=== PATIENT | female | born 1935 | race Asian ===

== ENCOUNTER 2023-12-16 23:29 | Observation (INO) | payer BC ==
[~2023-12-16] VITALS: Ht 160 cm; Wt 50.0 kg
[2023-12-17 00:05] LABS: ALANINE AMINOTRANSFERASE 17 U/L (12-78); ALBUMIN 3.7 G/DL (3.4-5.0); ALBUMIN/GLOBULIN RATIO 1.1 (1.1-1.5); ALKALINE PHOSPHATASE 46 IU/L (46-116); ANION GAP 7 (8-16); ASPARTATE AMINO TRANSFERASE 14 U/L (10-37); BILIRUBIN,TOTAL 0.3 MG/DL (0.1-1.0); BLOOD UREA NITROGEN 35 MG/DL (7-18); BUN/CREATININE RATIO 24.6 (10.0-20.0); CALCIUM 8.5 MG/DL (8.5-10.1); CHLORIDE 104 MMOL/L (99-107); CREATININE 1.42 MG/DL (0.40-0.90); GLUCOSE 120 MG/DL (70-104); POTASSIUM 4.2 MMOL/L (3.5-5.1); SODIUM 139 MMOL/L (135-145); TOTAL CARBON DIOXIDE 28.3 MMOL/L (24-32); TOTAL PROTEIN 7.1 G/DL (6.4-8.2); eCRCL 15 ML/MIN; eGFR 35 ML/MIN
[2023-12-17 00:06] LABS: BASOPHILS % (AUTO) 0.6 % (0-1); EOSINOPHILS # (AUTO) 0.2 X10'3 (0-0.9); EOSINOPHILS % (AUTO) 3.2 % (0-6); HEMATOCRIT 29.3 % (35.0-45.0); LYMPHOCYTES # (AUTO) 1.9 X10'3 (1.1-4.8); LYMPHOCYTES % (AUTO) 34.1 % (21-51); MEAN CORPUSCULAR HEMOGLOBIN 32.4 PG (27.0-31.0); MEAN CORPUSCULAR HGB CONC 34.2 g/dL (33.0-36.5); MEAN CORPUSCULAR VOLUME 94.8 FL (78-98); MEAN PLATELET VOLUME 6.8 FL (7.4-10.4); MONOCYTES # (AUTO) 0.6 X10'3 (0-0.9); MONOCYTES % (AUTO) 10.7 % (2-12); NEUTROPHILS # (AUTO) 2.9 X10'3 (1.8-7.7); NEUTROPHILS % (AUTO) 51.4 % (42-75); PLATELET COUNT 216 X10'3 (140-440); RED BLOOD COUNT 3.09 X10'6 (4.20-5.60); RED CELL DISTRIBUTION WIDTH 13.1 % (11.5-14.5); WHITE BLOOD COUNT 5.6 X10'3 (4.5-11.0)
[2023-12-17 00:13] LABS: PRO BRAIN NATRIURETIC PEPTIDE 535 PG/ML (0-450)
[2023-12-17] MEDS: normal saline 1000ml 1,000 ML IV ONE (03:36)
[2023-12-17] MEDS: pantoprazole 40 MG vial IV ONE (03:36)
[2023-12-17] MEDS: morphine 4 MG/ML inj SYRINge IV ONE (03:42)
[2023-12-17] MEDS: ondansetron/PF 4mg/2ml inj IV ONE (03:43)
[2023-12-17 03:48] LABS: MAGNESIUM 2.5 MG/DL (1.5-2.4)
[2023-12-17] MEDS ORDERED: NO HOME MEDS (04:04)
[2023-12-17] MEDS ORDERED: potassium Cl 20 mEq SR tablet PO PRN ×2 (04:20)
[2023-12-17] MEDS ORDERED: magnesium 4gm in 100ml NS 100 ML IV PRN (04:20)
[2023-12-17] MEDS ORDERED: magnesium hydroxide 30ml (MOM) UD suspension PO PRN (04:20)
[2023-12-17] MEDS ORDERED: ondansetron/PF 4mg/2ml inj IV PRN (04:20)
[2023-12-17] MEDS ORDERED: HYDROcodone/acetaminophen 10/325mg tab PO PRN (04:20)
[2023-12-17] MEDS ORDERED: magnesium Cl slow-release 64mg tablet PO PRN (04:20)
[2023-12-17] MEDS ORDERED: HYDROcodone/acetaminophen 5mg/325mg tablet PO PRN (04:20)
[2023-12-17] MEDS ORDERED: mag hydrox/Alum hydrox/simeth 30ml oral suspension PO PRN (04:20)
[2023-12-17] MEDS ORDERED: acetaminophen 325mg tablet PO PRN ×2 (04:20)
[2023-12-17] MEDS ORDERED: magnesium 2GM in 50ml NS 50 ML IV PRN (04:20)
[2023-12-17] MEDS ORDERED: potassium Cl 40MEQ/1/2NS 520ml 520 ML IV PRN (04:20)
[2023-12-17 05:54] VITALS: BP_DIAS 69; TEMP 98; O2SAT 96
[2023-12-17 06:58] VITALS: RESP 16
[2023-12-17 07:29] LABS: APTT 25 SECONDS (22-32); PROTHROMBIN TIME 9.8 SECONDS (9.0-12.0)
[2023-12-17 07:33] LABS: INR 0.9 INR
[2023-12-17 07:34] LABS: BILIRUBIN,URINE NEGATIVE (Neg); CLARITY,URINE CLEAR (Clear); COLOR,URINE STRAW (Yellow); GLUCOSE, URINE NEGATIVE (Neg); KETONES,URINE NEGATIVE (Neg); LEUKOCYTE ESTERASE ,URINE NEGATIVE (Neg); NITRITES, URINE NEGATIVE (Neg); OCCULT BLOOD,URINE NEGATIVE (Neg); PH,URINE 7.5 (4.8-8.0); PROTEIN,URINE NEGATIVE (Neg); UROBILINOGEN,URINE 0.2 E.U/dL (0.2-1.0)
[2023-12-17 07:46] LABS: UA COLLECTION TYPE CLN CATCH MIDSTREAM
[2023-12-17] MEDS ORDERED: bisoprolol 5mg tablet PO SCH (08:00)
[2023-12-17] MEDS: K and/or MAG REPLACEMENT MC SCH (08:00)
[2023-12-17] MEDS ORDERED: ketorolac trometh. 30mg/ml inj. IV PRN (08:30)
[2023-12-17] MEDS: pantoprazole 40 MG vial IV SCH (08:46)
[2023-12-17] MEDS: isosorbide mononitrate 30mg tab.SR.24H PO SCH (08:46)
[2023-12-17 08:47] VITALS: BP_SYST 160; PULSE 70
[2023-12-17] MEDS: atenolol 50mg tablet PO SCH (08:47)
[2023-12-17] MEDS: heparin, porcine 5000 units/ml vial SQ SCH (08:47)
[2023-12-17] MEDS ORDERED: LOSA-415 PO (10:27)
[2023-12-17] MEDS ORDERED: ACET-890 PO (10:27)
[2023-12-17] MEDS ORDERED: GABA-530 PO (10:27)
[2023-12-17] MEDS ORDERED: AMLO2.5T2 PO (10:27)
[2023-12-17] MEDS ORDERED: OMEP10CA5 PO (10:27)
[2023-12-17] MEDS ORDERED: NAPR-1170 PO (10:27)
[2023-12-17] MEDS ORDERED: ALPR-149 PO (10:27)
[2023-12-17] MEDS ORDERED: ATEN50TA41 PO (12:23)
[2023-12-17] MEDS ORDERED: PANT-47 PO (12:23)
== END 2023-12-17 13:00 | disposition home or self-care (01) ==
LOC: ER 23:31 → ED HOLD 12-17 04:25 → INTOOBSV 12-17 04:25 → PCU 3S 12-17 07:25
PROVIDERS: ADMIT Internal Medicine; ATTEND Family Medicine
DX: K21.9 Gastro-esophageal reflux disease without esophagitis (principal); R07.89 Other chest pain; N17.9 Acute kidney failure, unspecified; I10 Essential (primary) hypertension; Z79.899 Other long term (current) drug therapy
CPT/HCPCS: 36415; 71045; 71250; 74176; 80053; 81003; 83605; 83735; 83880; 84132; 84484; 85025; 85610; 85730; 86885; 86900; 86901; 87040; 93005; 96361; 96372; 96374; 96375; 96376; 99285; C9113; G0378; J1644; J2270; J2405; J7030

== ENCOUNTER 2023-12-28 06:14 | Inpatient (IN) | payer BC ==
[~2023-12-28] VITALS: Ht 152.4 cm; Wt 56.5 kg
[~2023-12-28 06:14] MED LIST: AMLO2.5T2 PO; ATEN50TA41 PO; GABA-530 PO; LOSA-415 PO; NO HOME MEDS; OMEP10CA5 PO; PANT-47 PO
[2023-12-28 06:47] LABS: BASOPHILS % (AUTO) 0.6 % (0-1); EOSINOPHILS # (AUTO) 0.2 X10'3 (0-0.9); HEMATOCRIT 30.8 % (35.0-45.0); HEMOGLOBIN 10.3 g/dl (12.0-16.0); LYMPHOCYTES # (AUTO) 1.8 X10'3 (1.1-4.8); MEAN CORPUSCULAR HEMOGLOBIN 31.8 PG (27.0-31.0); MEAN CORPUSCULAR HGB CONC 33.5 g/dL (33.0-36.5); MEAN PLATELET VOLUME 7.2 FL (7.4-10.4); MONOCYTES # (AUTO) 0.6 X10'3 (0-0.9); MONOCYTES % (AUTO) 7.7 % (2-12); NEUTROPHILS # (AUTO) 4.6 X10'3 (1.8-7.7); NEUTROPHILS % (AUTO) 63.7 % (42-75); PLATELET COUNT 227 X10'3 (140-440); RED BLOOD COUNT 3.24 X10'6 (4.20-5.60); WHITE BLOOD COUNT 7.2 X10'3 (4.5-11.0)
[2023-12-28] MEDS: morphine 2 MG/ML inj. syringe IV ONE ×2 (06:54→07:55)
[2023-12-28 07:03] LABS: ALANINE AMINOTRANSFERASE 55 U/L (12-78); ALBUMIN 3.8 G/DL (3.4-5.0); ALBUMIN/GLOBULIN RATIO 1.1 (1.1-1.5); ALKALINE PHOSPHATASE 49 IU/L (46-116); ANION GAP 11 (8-16); ASPARTATE AMINO TRANSFERASE 21 U/L (10-37); BILIRUBIN,TOTAL 0.3 MG/DL (0.1-1.0); BLOOD UREA NITROGEN 32 MG/DL (7-18); BUN/CREATININE RATIO 23.5 (10.0-20.0); CALCIUM 8.7 MG/DL (8.5-10.1); CHLORIDE 108 MMOL/L (99-107); CREATININE 1.36 MG/DL (0.40-0.90); GLUCOSE 114 MG/DL (70-104); POTASSIUM 4.2 MMOL/L (3.5-5.1); SODIUM 145 MMOL/L (135-145); TOTAL CARBON DIOXIDE 25.6 MMOL/L (24-32); TOTAL PROTEIN 7.4 G/DL (6.4-8.2); eCRCL 21 ML/MIN; eGFR 37 ML/MIN
[2023-12-28 07:10] LABS: PRO BRAIN NATRIURETIC PEPTIDE 1382 PG/ML (0-450)
[2023-12-28] MEDS: normal saline 500ml IV soln 500 ML IV SCH (07:25)
[2023-12-28] MEDS: nitroGLYCERIN 1gm ointment UD TP ONE (07:25)
[2023-12-28 09:52] LABS: D-DIMER 0.39 MG/L FEU (0-0.50)
[2023-12-28] MEDS ORDERED: heparin 10,000 units/1 ML INJ IV ONE ×2 (10:15→11:10)
[2023-12-28 10:24] LABS: APTT 26 SECONDS (22-32)
[2023-12-28 10:36] LABS: PROTHROMBIN TIME 10.2 SECONDS (9.0-12.0)
[2023-12-28] MEDS ORDERED: mag hydrox/Alum hydrox/simeth 30ml oral suspension PO PRN (11:10)
[2023-12-28] MEDS ORDERED: HYDROcodone/acetaminophen 10/325mg tab PO PRN (11:10)
[2023-12-28] MEDS ORDERED: potassium Cl 40MEQ/1/2NS 520ml 520 ML IV PRN (11:10)
[2023-12-28] MEDS ORDERED: ondansetron/PF 4mg/2ml inj IV PRN (11:10)
[2023-12-28] MEDS ORDERED: acetaminophen 325mg tablet PO PRN ×2 (11:10)
[2023-12-28] MEDS ORDERED: magnesium 2GM in 50ml NS 50 ML IV PRN (11:10)
[2023-12-28] MEDS ORDERED: heparin 25,000 UNIT/250ml bag 250 ML IV PRN (11:10)
[2023-12-28] MEDS ORDERED: heparin 10,000 units/1 ML INJ IV PRN (11:10)
[2023-12-28] MEDS ORDERED: magnesium 4gm in 100ml NS 100 ML IV PRN (11:10)
[2023-12-28] MEDS ORDERED: morphine 2 MG/ML inj. syringe IV PRN ×2 (11:10)
[2023-12-28] MEDS ORDERED: ondansetron 4mg rapidly disintigrating tab PO PRN (11:10)
[2023-12-28] MEDS ORDERED: magnesium Cl slow-release 64mg tablet PO PRN (11:10)
[2023-12-28] MEDS ORDERED: magnesium hydroxide 30ml (MOM) UD suspension PO PRN (11:10)
[2023-12-28] MEDS ORDERED: potassium Cl 20 mEq SR tablet PO PRN ×2 (11:10)
[2023-12-28] MEDS: heparin 10,000 units/1 ML INJ IV ONE (11:13)
[2023-12-28] MEDS: heparin 25,000 UNIT/250ml bag 250 ML IV PRN (11:15)
[2023-12-28] MEDS: aspirin 325mg tablet, delayed-release (Ecotrin) PO ONE (11:27)
[2023-12-28 11:45] LABS: CHOL/HDL RATIO 4.1 (0.00-4.99); CHOLESTEROL 199 MG/DL (0-200); HDL CHOLESTEROL 48 MG/DL (35-60); LDL CHOLESTEROL 126 MG/DL (50-100); TRIGLYCERIDES 93 MG/DL (20-135)
[2023-12-28 11:48] LABS: H PYLORI ANTIBODY NEGATIVE (Neg)
[2023-12-28 11:50] LABS: BASOPHILS % (AUTO) 0.4 % (0-1); EOSINOPHILS % (AUTO) 0.6 % (0-6); HEMATOCRIT 28.6 % (35.0-45.0); HEMOGLOBIN 9.4 g/dl (12.0-16.0); LYMPHOCYTES # (AUTO) 0.9 X10'3 (1.1-4.8); LYMPHOCYTES % (AUTO) 12.8 % (21-51); MEAN CORPUSCULAR HEMOGLOBIN 31.4 PG (27.0-31.0); MEAN CORPUSCULAR HGB CONC 32.9 g/dL (33.0-36.5); MEAN CORPUSCULAR VOLUME 95.4 FL (78-98); MEAN PLATELET VOLUME 7.7 FL (7.4-10.4); MONOCYTES # (AUTO) 0.4 X10'3 (0-0.9); MONOCYTES % (AUTO) 5.5 % (2-12); NEUTROPHILS # (AUTO) 5.9 X10'3 (1.8-7.7); NEUTROPHILS % (AUTO) 80.7 % (42-75); PLATELET COUNT 189 X10'3 (140-440); WHITE BLOOD COUNT 7.3 X10'3 (4.5-11.0)
[2023-12-28] MEDS: normal saline 1000ml 1,000 ML IV SCH (13:19)
[2023-12-28] MEDS ORDERED: LORazepam 0.5 MG tablet PO PRN (16:05)
[2023-12-28] MEDS: hydrALAZINE 20mg/ml inj. IV PRN (18:14)
[2023-12-28] MEDS ORDERED: ALPR-149 PO (18:53)
[2023-12-28] MEDS ORDERED: OMEP40CA21 PO (18:53)
[2023-12-28] MEDS ORDERED: GABA-530 PO (18:53)
[2023-12-28] MEDS ORDERED: NAPR-1170 PO (18:53)
[2023-12-28] MEDS ORDERED: ergocalciferol PO (18:53)
[2023-12-28] MEDS ORDERED: LOSA100T58 PO (18:53)
[2023-12-28] MEDS ORDERED: ATEN50TA PO (18:56)
[2023-12-28] MEDS ORDERED: AMLO2.5T5 PO (18:56)
[2023-12-28 19:30] VITALS: BP 165/58; PULSE 79; RESP 14; TEMP 98.7; O2SAT 100
[2023-12-28] MEDS: K and/or MAG REPLACEMENT MC SCH (20:00)
[2023-12-28] MEDS: MESSAGE TO NURSING IV ONE (20:45)
[2023-12-28] MEDS: docusate sod 100mg capsule PO SCH (21:26)
[2023-12-28] MEDS: metoprolol tartrate 25mg tablet PO SCH (21:27)
[2023-12-28 22:00] VITALS: BP 160/69; PULSE 71; RESP 13; TEMP 98.2; O2SAT 95
[2023-12-28] MEDS: HYDROcodone/acetaminophen 5mg/325mg tablet PO PRN (22:44)
[2023-12-28] MEDS: temazepam 15mg capsule PO PRN (22:45)
[2023-12-29] VITALS (9 sets, daily range): BP systolic 145–170; BP diastolic 55–73; PULSE 67–84; RESP 11–18; TEMP 98.3–98.9; O2SAT 91–96
[2023-12-29 01:51] LABS: ALANINE AMINOTRANSFERASE 45 U/L (12-78); ALBUMIN 2.9 G/DL (3.4-5.0); ALBUMIN/GLOBULIN RATIO 0.9 (1.1-1.5); ALKALINE PHOSPHATASE 41 IU/L (46-116); ANION GAP 10 (8-16); ASPARTATE AMINO TRANSFERASE 105 U/L (10-37); BILIRUBIN,TOTAL 0.4 MG/DL (0.1-1.0); BLOOD UREA NITROGEN 21 MG/DL (7-18); BUN/CREATININE RATIO 18.4 (10.0-20.0); CALCIUM 8.1 MG/DL (8.5-10.1); CHLORIDE 110 MMOL/L (99-107); CREATININE 1.14 MG/DL (0.40-0.90); GLUCOSE 99 MG/DL (70-104); POTASSIUM 3.9 MMOL/L (3.5-5.1); SODIUM 144 MMOL/L (135-145); TOTAL CARBON DIOXIDE 23.8 MMOL/L (24-32); eCRCL 25 ML/MIN; eGFR 45 ML/MIN
[2023-12-29] MEDS: MESSAGE TO NURSING IV ONE ×4 (02:45→12:50)
[2023-12-29] MEDS: heparin 10,000 units/1 ML INJ IV PRN (03:08)
[2023-12-29] MEDS ORDERED: nitroGLYCERIN 0.4mg SUBLingual tab SL PRN (05:30)
[2023-12-29 06:31] LABS: BASOPHILS % (AUTO) 0.5 % (0-1); EOSINOPHILS # (AUTO) 0.2 X10'3 (0-0.9); HEMATOCRIT 29.3 % (35.0-45.0); HEMOGLOBIN 9.7 g/dl (12.0-16.0); LYMPHOCYTES # (AUTO) 1.9 X10'3 (1.1-4.8); LYMPHOCYTES % (AUTO) 24.8 % (21-51); MEAN CORPUSCULAR HEMOGLOBIN 31.5 PG (27.0-31.0); MEAN CORPUSCULAR HGB CONC 33.2 g/dL (33.0-36.5); MEAN CORPUSCULAR VOLUME 94.7 FL (78-98); MONOCYTES # (AUTO) 0.6 X10'3 (0-0.9); MONOCYTES % (AUTO) 7.5 % (2-12); NEUTROPHILS % (AUTO) 65.2 % (42-75); PLATELET COUNT 189 X10'3 (140-440); RED BLOOD COUNT 3.09 X10'6 (4.20-5.60); WHITE BLOOD COUNT 7.6 X10'3 (4.5-11.0)
[2023-12-29] MEDS: pantoprazole 40mg Tablet.DR PO SCH (07:47)
[2023-12-29] MEDS: aspirin 81mg tab.chew PO SCH (07:47)
[2023-12-29] MEDS: atorvastatin 20mg tablet PO SCH (07:47)
[2023-12-29] MEDS ORDERED: LIDOcaine 1% (10mg/ml) 2ml vial ONE (11:34)
[2023-12-29] MEDS ORDERED: verapamil 2.5 mg/ml inj IV ONE (11:34)
[2023-12-29] MEDS ORDERED: heparin 1,000unit/ml 10ml vial 10 ML ONE (11:34)
[2023-12-29] MEDS ORDERED: fentaNYL/PF 50MCG/1 ML 2ML syringe ONE (11:34)
[2023-12-29] MEDS ORDERED: midazolam 1 mg/ML 2ml injection ONE (11:34)
[2023-12-29] MEDS ORDERED: iohexol 350MG/ML 100ml bottle IV ONE (11:34)
[2023-12-29] MEDS ORDERED: nitroGLYCERIN 500mcg/5mL D5W 5 ML IV ONE (11:37)
[2023-12-29] MEDS ORDERED: LIDOcaine 1% 30ml preserv. free vial ONE (12:10)
[2023-12-29] MEDS: diltiazem 30mg tablet PO SCH (13:01)
[2023-12-29] MEDS ORDERED: diltiazem 30mg tablet PO SCH (14:00)
[2023-12-29] MEDS ORDERED: DILT30TA2 PO (17:00)
[2023-12-29] MEDS ORDERED: ATOR20TA66 PO (17:00)
[2023-12-29] MEDS ORDERED: NITR0.4T51 SL (17:00)
== END 2023-12-29 17:30 | disposition home or self-care (01) | DRG 281 ==
LOC: ER 06:14 → ED HOLD 11:16 → PCU 3S 19:30
PROVIDERS: ADMIT Family Medicine; ATTEND Family Medicine
PROC: 4A023N7 Measurement of Cardiac Sampling and Pressure, Left Heart, Percutaneous Approach (ICD-10-PCS; principal; 2023-12-29)
PROC: B2111ZZ Fluoroscopy of Multiple Coronary Arteries using Low Osmolar Contrast (ICD-10-PCS; 2023-12-29)
PROC: B2151ZZ Fluoroscopy of Left Heart using Low Osmolar Contrast (ICD-10-PCS; 2023-12-29)
DX: I21.4 Non-ST elevation (NSTEMI) myocardial infarction (principal); I31.9 Disease of pericardium, unspecified; I25.110 Atherosclerotic heart disease of native coronary artery with unstable angina pectoris; E78.00 Pure hypercholesterolemia, unspecified; I12.9 Hypertensive chronic kidney disease with stage 1 through stage 4 chronic kidney disease, or unspecified chronic kidney disease; F41.1 Generalized anxiety disorder; K21.9 Gastro-esophageal reflux disease without esophagitis; N18.9 Chronic kidney disease, unspecified; Z86.73 Personal history of transient ischemic attack (TIA), and cerebral infarction without residual deficits; Z88.5 Allergy status to narcotic agent; Z82.3 Family history of stroke; Z82.62 Family history of osteoporosis
CPT/HCPCS: 36415; 71045; 76770; 80053; 80061; 83735; 83880; 84484; 85025; 85379; 85610; 85730; 86677; 87081; 93005; 93306; 93458; 93970; 96365; 96375; 96376; 99152; 99153; 99285; A6258; C1760; C1894; G0378; J0360; J1644; J2250; J2270; J3010; J3490; J7030; J7040; Q9967

== ENCOUNTER 2024-07-28 12:52 | Emergency (ER) | payer BC ==
[~2024-07-28] VITALS: Ht 149.9 cm; Wt 59.2 kg
[~2024-07-28 12:52] MED LIST changes: +ALPR-149 PO; -AMLO2.5T2 PO; -ATEN50TA41 PO; +ATOR20TA66 PO; +DILT30TA2 PO; -LOSA-415 PO; +LOSA100T58 PO; +NAPR-1170 PO; +NITR0.4T51 SL; -NO HOME MEDS; -OMEP10CA5 PO; +OMEP40CA21 PO; -PANT-47 PO; +ergocalciferol PO
[2024-07-28 13:14] VITALS: TEMP 97.9
[2024-07-28] MEDS ORDERED: ALBU8HFA INH (16:44)
[2024-07-28] MEDS ORDERED: PROM118S5 PO (16:44)
[2024-07-28 17:11] VITALS: BP 122/80; PULSE 74; RESP 16; O2SAT 96
[2024-07-29] MEDS ORDERED: LISI10TA27 PO (19:38)
[2024-07-29] MEDS ORDERED: FURO-150 PO (19:38)
[2024-07-29] MEDS ORDERED: AMOX-318 PO (19:38)
[2024-07-29] MEDS ORDERED: AZIT250T83 PO (19:38)
[2024-07-29] MEDS ORDERED: PROM118S5 PO (19:38)
[2024-07-29] MEDS ORDERED: AMLO5TAB PO (19:38)
[2024-07-29] MEDS ORDERED: BENZ-38 PO (19:38)
== END 2024-07-28 17:12 | disposition home or self-care (01) ==
LOC: ER 12:52
DX: J06.9 Acute upper respiratory infection, unspecified (principal); Z20.822 Contact with and (suspected) exposure to COVID-19; I10 Essential (primary) hypertension; E78.00 Pure hypercholesterolemia, unspecified; Z88.5 Allergy status to narcotic agent; Z79.899 Other long term (current) drug therapy
CPT/HCPCS: 36415; 71045; 87811; 99284

== ENCOUNTER 2024-07-29 11:37 | Inpatient (IN) | payer BC ==
[~2024-07-29] VITALS: Ht 151.1 cm; Wt 60.0 kg
[~2024-07-29 11:37] MED LIST changes: +ALBU8HFA INH; +PROM118S5 PO
[2024-07-29 12:24] LABS: BASOPHILS % (AUTO) 0.3 % (0-1); EOSINOPHILS # (AUTO) 0.1 X10'3 (0-0.9); EOSINOPHILS % (AUTO) 1.7 % (0-6); HEMATOCRIT 25.9 % (35.0-45.0); HEMOGLOBIN 8.6 g/dl (12.0-16.0); LYMPHOCYTES % (AUTO) 14.3 % (21-51); MEAN CORPUSCULAR HGB CONC 33.4 g/dL (33.0-36.5); MEAN PLATELET VOLUME 7.2 FL (7.4-10.4); MONOCYTES # (AUTO) 0.6 X10'3 (0-0.9); MONOCYTES % (AUTO) 8.9 % (2-12); NEUTROPHILS # (AUTO) 5.2 X10'3 (1.8-7.7); NEUTROPHILS % (AUTO) 74.8 % (42-75); PLATELET COUNT 178 X10'3 (140-440); RED BLOOD COUNT 2.69 X10'6 (4.20-5.60); RED CELL DISTRIBUTION WIDTH 13.7 % (11.5-14.5)
[2024-07-29 12:46] LABS: ALBUMIN 2.8 G/DL (3.4-5.0); ANION GAP 9 (8-16); BLOOD UREA NITROGEN 45 MG/DL (7-18); BUN/CREATININE RATIO 26.9 (10.0-20.0); CALCIUM 8.4 MG/DL (8.5-10.1); CHLORIDE 107 MMOL/L (99-107); CREATININE 1.67 MG/DL (0.40-0.90); GLUCOSE 114 MG/DL (70-104); POTASSIUM 4.3 MMOL/L (3.5-5.1); SODIUM 141 MMOL/L (135-145); TOTAL CARBON DIOXIDE 24.8 MMOL/L (24-32); eCRCL 16 ML/MIN; eGFR 29 ML/MIN
[2024-07-29 12:47] LABS: PRO BRAIN NATRIURETIC PEPTIDE 6960 PG/ML (0-450)
[2024-07-29] MEDS: aspirin 81mg tab.chew PO ONE (17:00)
[2024-07-29] MEDS: azithromycin/NS 500mg/250ml 250 ML IV ONE ×2 (17:43→18:09)
[2024-07-29] MEDS ORDERED: magnesium hydroxide 30ml (MOM) UD suspension PO PRN (17:50)
[2024-07-29] MEDS ORDERED: ipratropium/albuterol 3ml nebule NEB PRN (17:50)
[2024-07-29] MEDS ORDERED: diphenhydrAMINE 50 mg/ml inj IV PRN (17:50)
[2024-07-29] MEDS ORDERED: HYDROcodone/acetaminophen 5mg/325mg tablet PO PRN (17:50)
[2024-07-29] MEDS ORDERED: acetaminophen 650mg rectal suppository RC PRN (17:50)
[2024-07-29] MEDS ORDERED: acetaminophen 325mg tablet PO PRN ×2 (17:50)
[2024-07-29] MEDS ORDERED: bisacodyl 10mg suppository rectal RC PRN (17:50)
[2024-07-29] MEDS ORDERED: mag hydrox/Alum hydrox/simeth 30ml oral suspension PO PRN (17:50)
[2024-07-29] MEDS ORDERED: morphine 2 MG/ML inj. syringe IV PRN (17:50)
[2024-07-29] MEDS ORDERED: ondansetron/PF 4mg/2ml inj IV PRN (17:50)
[2024-07-29] MEDS ORDERED: ondansetron 4mg rapidly disintigrating tab PO PRN (17:50)
[2024-07-29] MEDS ORDERED: CefTRIAXone 2gm/D5W 50ml BAG 50 ML IV SCH (18:00)
[2024-07-29 18:09] LABS: BILIRUBIN,URINE NEGATIVE (Neg); CLARITY,URINE CLEAR (Clear); COLOR,URINE YELLOW (Yellow); GLUCOSE, URINE NEGATIVE (Neg); KETONES,URINE NEGATIVE (Neg); LEUKOCYTE ESTERASE ,URINE NEGATIVE (Neg); NITRITES, URINE NEGATIVE (Neg); OCCULT BLOOD,URINE NEGATIVE (Neg); PROTEIN,URINE NEGATIVE (Neg); UROBILINOGEN,URINE 0.2 E.U/dL (0.2-1.0)
[2024-07-29 18:13] LABS: UA COLLECTION TYPE CLN CATCH MIDSTREAM
[2024-07-29 18:24] LABS: PHOSPHORUS 4.6 MG/DL (2.3-4.5); THYROID STIMULATING HORMONE 1.16 ulU/ml (0.34-4.50)
[2024-07-29 19:02] VITALS: PULSE 73; RESP 18; O2SAT 95
[2024-07-29] MEDS ORDERED: AMLO5TAB PO (19:38)
[2024-07-29] MEDS ORDERED: LISI10TA27 PO (19:38)
[2024-07-29] MEDS ORDERED: PROM118S5 PO (19:38)
[2024-07-29] MEDS ORDERED: AZIT250T83 PO (19:38)
[2024-07-29] MEDS ORDERED: AMOX-318 PO (19:38)
[2024-07-29] MEDS ORDERED: BENZ-38 PO (19:38)
[2024-07-29] MEDS ORDERED: FURO-150 PO (19:38)
[2024-07-29] MEDS: CefTRIAXone/D5W-Rocephin 1gm 50 ML IV SCH (19:58)
[2024-07-29] MEDS: normal saline 1000ml 1,000 ML IV SCH (19:58)
[2024-07-29] MEDS: heparin, porcine 5000 units/ml vial SQ SCH (19:58)
[2024-07-29] MEDS: docusate sod 100mg capsule PO SCH (19:59)
[2024-07-29] MEDS ORDERED: temazepam 15mg capsule PO PRN (21:00)
[2024-07-30] VITALS (9 sets, daily range): BP systolic 137–147; BP diastolic 46–60; PULSE 64–87; RESP 16; TEMP 97.2–99.1; O2SAT 94–99
[2024-07-30 06:34] LABS: BASOPHILS % (AUTO) 0.5 % (0-1); EOSINOPHILS # (AUTO) 0.1 X10'3 (0-0.9); EOSINOPHILS % (AUTO) 2.7 % (0-6); HEMATOCRIT 24.8 % (35.0-45.0); HEMOGLOBIN 8.3 g/dl (12.0-16.0); LYMPHOCYTES % (AUTO) 20.5 % (21-51); MEAN CORPUSCULAR HGB CONC 33.4 g/dL (33.0-36.5); MEAN CORPUSCULAR VOLUME 95.9 FL (78-98); MEAN PLATELET VOLUME 7.3 FL (7.4-10.4); MONOCYTES # (AUTO) 0.7 X10'3 (0-0.9); MONOCYTES % (AUTO) 13.3 % (2-12); NEUTROPHILS # (AUTO) 3.2 X10'3 (1.8-7.7); PLATELET COUNT 185 X10'3 (140-440); RED BLOOD COUNT 2.59 X10'6 (4.20-5.60); RED CELL DISTRIBUTION WIDTH 13.6 % (11.5-14.5); WHITE BLOOD COUNT 5.1 X10'3 (4.5-11.0)
[2024-07-30 06:55] LABS: ALANINE AMINOTRANSFERASE 87 U/L (12-78); ALBUMIN 2.6 G/DL (3.4-5.0); ALBUMIN/GLOBULIN RATIO 0.7 (1.1-1.5); ALKALINE PHOSPHATASE 217 IU/L (46-116); ANION GAP 8 (8-16); ASPARTATE AMINO TRANSFERASE 95 U/L (10-37); BILIRUBIN,TOTAL 0.3 MG/DL (0.1-1.0); BLOOD UREA NITROGEN 38 MG/DL (7-18); BUN/CREATININE RATIO 27.7 (10.0-20.0); CALCIUM 8.2 MG/DL (8.5-10.1); CHLORIDE 108 MMOL/L (99-107); CREATININE 1.37 MG/DL (0.40-0.90); GLUCOSE 101 MG/DL (70-104); POTASSIUM 4.3 MMOL/L (3.5-5.1); SODIUM 140 MMOL/L (135-145); TOTAL CARBON DIOXIDE 24.5 MMOL/L (24-32); TOTAL PROTEIN 6.4 G/DL (6.4-8.2); eCRCL 20 ML/MIN; eGFR 36 ML/MIN
[2024-07-30] MEDS: pantoprazole 40mg Tablet.DR PO SCH (09:09)
[2024-07-30] MEDS: azithromycin/NS 500mg/250ml 250 ML IV SCH (17:34)
[2024-07-31 05:58] LABS: BASOPHILS % (AUTO) 0.6 % (0-1); EOSINOPHILS # (AUTO) 0.2 X10'3 (0-0.9); EOSINOPHILS % (AUTO) 2.7 % (0-6); HEMATOCRIT 27.2 % (35.0-45.0); HEMOGLOBIN 9.2 g/dl (12.0-16.0); LYMPHOCYTES # (AUTO) 1.7 X10'3 (1.1-4.8); LYMPHOCYTES % (AUTO) 27.8 % (21-51); MEAN CORPUSCULAR HEMOGLOBIN 32.3 PG (27.0-31.0); MEAN CORPUSCULAR HGB CONC 33.7 g/dL (33.0-36.5); MEAN CORPUSCULAR VOLUME 95.9 FL (78-98); MEAN PLATELET VOLUME 7.3 FL (7.4-10.4); MONOCYTES # (AUTO) 0.8 X10'3 (0-0.9); NEUTROPHILS # (AUTO) 3.4 X10'3 (1.8-7.7); NEUTROPHILS % (AUTO) 55.9 % (42-75); PLATELET COUNT 229 X10'3 (140-440); RED BLOOD COUNT 2.84 X10'6 (4.20-5.60); RED CELL DISTRIBUTION WIDTH 13.5 % (11.5-14.5); WHITE BLOOD COUNT 6.1 X10'3 (4.5-11.0)
[2024-07-31 06:00] VITALS: BP 163/64; PULSE 89; RESP 18; TEMP 99.1; O2SAT 94
[2024-07-31 06:11] LABS: ALANINE AMINOTRANSFERASE 58 U/L (12-78); ALBUMIN 2.7 G/DL (3.4-5.0); ALBUMIN/GLOBULIN RATIO 0.7 (1.1-1.5); ALKALINE PHOSPHATASE 186 IU/L (46-116); ANION GAP 7 (8-16); ASPARTATE AMINO TRANSFERASE 32 U/L (10-37); BILIRUBIN,TOTAL 0.4 MG/DL (0.1-1.0); BLOOD UREA NITROGEN 21 MG/DL (7-18); BUN/CREATININE RATIO 17.4 (10.0-20.0); CALCIUM 8.3 MG/DL (8.5-10.1); CHLORIDE 109 MMOL/L (99-107); CREATININE 1.21 MG/DL (0.40-0.90); GLUCOSE 109 MG/DL (70-104); POTASSIUM 4.2 MMOL/L (3.5-5.1); SODIUM 140 MMOL/L (135-145); TOTAL CARBON DIOXIDE 23.7 MMOL/L (24-32); TOTAL PROTEIN 6.8 G/DL (6.4-8.2); eCRCL 23 ML/MIN; eGFR 42 ML/MIN
[2024-07-31 07:28] LABS: OCCULT BLOOD STOOL NEGATIVE (Neg)
[2024-07-31 08:00] VITALS: RESP 16; O2SAT 96
[2024-07-31 10:00] VITALS: BP 150/47; PULSE 83; RESP 18; TEMP 98.4; O2SAT 96
[2024-07-31 10:04] VITALS: PULSE 74; RESP 16; O2SAT 98
[2024-07-31] MEDS: diphenhydrAMINE 25mg capsule PO PRN (11:35)
[2024-07-31] MEDS ORDERED: POTA-205 PO (15:30)
[2024-07-31] MEDS ORDERED: DOXY-243 PO (15:30)
== END 2024-07-31 15:45 | disposition left against medical advice (07) | DRG 177 ==
LOC: ER 11:38 → UNDOADMIN 17:56 → ED HOLD 17:56 → ORTHO 4S 07-30 01:00
PROVIDERS: ADMIT Family Medicine; ATTEND Family Medicine
DX: J15.69 Pneumonia due to other Gram-negative bacteria (principal); G93.41 Metabolic encephalopathy; I50.33 Acute on chronic diastolic (congestive) heart failure; I13.0 Hypertensive heart and chronic kidney disease with heart failure and stage 1 through stage 4 chronic kidney disease, or unspecified chronic kidney disease; N17.9 Acute kidney failure, unspecified; J18.9 Pneumonia, unspecified organism; J15.9 Unspecified bacterial pneumonia; Z53.21 Procedure and treatment not carried out due to patient leaving prior to being seen by health care provider; E78.00 Pure hypercholesterolemia, unspecified; N18.9 Chronic kidney disease, unspecified; D64.9 Anemia, unspecified; I25.10 Atherosclerotic heart disease of native coronary artery without angina pectoris; K21.9 Gastro-esophageal reflux disease without esophagitis; F41.9 Anxiety disorder, unspecified; E88.09 Other disorders of plasma-protein metabolism, not elsewhere classified; Z88.5 Allergy status to narcotic agent; Z79.899 Other long term (current) drug therapy
CPT/HCPCS: 36415; 70450; 71045; 71250; 80048; 80053; 81003; 82272; 82948; 83605; 83735; 83880; 84100; 84443; 84484; 85025; 85379; 87040; 87081; 93005; 93306; 94760; 96365; 97116; 97161; 97530; 99285; G0378; J0456; J0696; J1644; J7030; Q0163

== ENCOUNTER 2025-07-15 08:26 | Outpatient (CLI) | payer BC ==
[~2025-07-15 08:26] MED LIST changes: -ALBU8HFA INH; -ALPR-149 PO; +AMLO5TAB PO; +AMOX-318 PO; -ATOR20TA66 PO; +AZIT250T83 PO; +BENZ-38 PO; -DILT30TA2 PO; +FURO-150 PO; -GABA-530 PO; +LISI10TA27 PO; -LOSA100T58 PO; -NAPR-1170 PO; -NITR0.4T51 SL; -OMEP40CA21 PO; +POTA-205 PO; -ergocalciferol PO
--- NOTE | 2025-07-15 10:15 | RADIOLOGY REPORT ---
CLINICAL INFORMATION: Scapular fracture. Rotator cuff tear. TECHNIQUE: Multisequence multiplanar MRI images of the right shoulder were obtained without contrast. COMPARISON: None FINDINGS: Acromioclavicular joint: There is mild acromioclavicular hypertrophy and mild edema. There is type 1 acromion. Small amount of fluid in the subacromial / subdeltoid bursa. Rotator cuff tendons: [id number] tendinosis of the distal supraspinatus and infraspinatus tendons. Small thin partial-thickness interstitial tear in the distal infraspinatus tendon near its insertion. Mild tendinosis of the distal subscapularis tendon without evidence of tear. Teres minor tendon is intact and otherwise unremarkable. Biceps tendon: No significant tendinosis. No evidence of attrition or tear. Labrum: Motion artifact limits evaluation of the labrum. There is intrasubstance signal in the superior labrum and extending near the level of the biceps anchor, suspected superior labral tear. No propagation of the tear into the long head biceps tendon. Bones: Acute or subacute comminuted fracture involving the body of the scapula with some prominent angulation of the fracture. There are fracture planes extending to the glenoid neck and to the articular surface of the glenoid. No displacement seen at the glenoid articular surface. Muscles: Normal muscle bulk. No atrophy. Other: No other significant findings. IMPRESSION: 1. Comminuted scapular fracture with fracture planes extending to the glenoid neck and glenoid articular surface as detailed above. 2. Rotator cuff tendinosis with small partial-thickness interstitial tear in the distal infraspinatus tendon. 3. Suspected tear of the superior labrum. 4. Mild acromioclavicular hypertrophy with mild subacromial / subdeltoid bursitis.
== END 2025-07-15 23:59 | disposition home or self-care (01) ==
LOC: MRI02 08:26
PROVIDERS: ATTEND Family Medicine
DX: S42.101A Fracture of unspecified part of scapula, right shoulder, initial encounter for closed fracture (principal); M75.40 Impingement syndrome of unspecified shoulder; M75.111 Incomplete rotator cuff tear or rupture of right shoulder, not specified as traumatic; S42.011A Anterior displaced fracture of sternal end of right clavicle, initial encounter for closed fracture; M75.51 Bursitis of right shoulder; M89.311 Hypertrophy of bone, right shoulder; X58.XXXA Exposure to other specified factors, initial encounter; Y93.89 Activity, other specified; Y92.89 Other specified places as the place of occurrence of the external cause; Y99.8 Other external cause status
CPT/HCPCS: 73221

== ENCOUNTER 2025-09-18 10:02 | Outpatient (CLI) | payer BC ==
--- NOTE | 2025-09-18 13:29 | RADIOLOGY REPORT ---
EXAM: MR MRI LOWER EXTREMITY LEFT INDICATION: PAIN IN LEFT KNEE TECHNIQUE:: Multiplanar and multisequence MR imaging of the left knee was performed in the absence of gadolinium contrast. COMPARISON: None FINDINGS: There is a tear free edge of the body of the lateral meniscus with blunting. There is thinning of the hyaline cartilage surfaces in the overlying lateral femoral condyle and underlying tibial plateau with subchondral signal intensity change suggesting grade 4 chondrosis Intrameniscal signal is seen in the medial meniscus without ofelia tear The cruciate ligaments are intact The collateral ligaments are intact Quadriceps and patellar tendons intact Trace joint effusion The hyaline cartilage surfaces covering the patellofemoral joint are thinned with subchondral signal intensity along the medial facet IMPRESSION: 1. 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 Grade 4 chondromalacia patella
== END 2025-09-18 23:59 | disposition home or self-care (01) ==
LOC: MRI02 10:02
PROVIDERS: ATTEND Family Medicine
DX: S83.282A Other tear of lateral meniscus, current injury, left knee, initial encounter (principal); M25.562 Pain in left knee; X58.XXXA Exposure to other specified factors, initial encounter; Y93.89 Activity, other specified; Y92.89 Other specified places as the place of occurrence of the external cause; Y99.8 Other external cause status; M22.42 Chondromalacia patellae, left knee
CPT/HCPCS: 73721